=== PATIENT | female | born 1940 | race Caucasian/White ===

== ENCOUNTER 2019-03-17 11:46 | Emergency (ER) | payer OTHER ==
[~2019-03-17] VITALS: Ht 172.7 cm; Wt 63.0 kg
[2019-03-17 12:59] VITALS: BP 120/66
== END 2019-03-17 15:43 | disposition left against medical advice (07) ==
LOC: ER 11:46
DX: H92.09 Otalgia, unspecified ear (principal); Z53.21 Procedure and treatment not carried out due to patient leaving prior to being seen by health care provider